=== PATIENT | female | born 1980 | race Caucasian/White ===

== ENCOUNTER → 2016-07-10 | Outpatient (REF) | payer OTHER, MEDICAID ==
[~2016-07-10] MED LIST: /MOM400 PO; ACET50TA PO; ANUS2.5C2 EXT; COLA50CA3 PO; IBUP-1114 PO; IBUP600T26 PO; PRENTAB66 PO
== END ==
LOC: M SFHCSACK 13:13
PROVIDERS: ATTEND Physician Assistant
DX: L65.9 Nonscarring hair loss, unspecified (principal)

== ENCOUNTER → 2017-01-08 | Outpatient (REF) | payer MEDICAID, OTHER ==
[2017-01-08 16:17] LABS: ADD MANUAL DIFFER YES; MEAN CORPUSCULAR HGB CONC 33.8 g/dl (32.0-36.5); MEAN CORPUSCULAR VOLUME 91.6 fl (80.0-96.0); PLATELET COUNT, AUTOMATED 259 k/mm3 (150-450); RED CELL DISTRIBUTION WIDTH 11.8 % (11.5-14.5); WHITE BLOOD COUNT 7.1 K/mm3 (4.0-10.0)
[2017-01-08 16:21] LABS: VITAMIN B12 LEVEL 729 PG/ML (247-911)
[2017-01-08 16:23] LABS: ALBUMIN 3.9 GM/DL (3.2-5.2); ALBUMIN/GLOBULIN RATIO 1.08 (1.00-1.93); ALKALINE PHOSPHATASE 98 U/L (45-117); ALT/SGPT 25 U/L (12-78); ANION GAP 8 MEQ/L (8-16); AST/SGOT 14 U/L (15-37); BILIRUBIN,TOTAL 0.5 MG/DL (0.2-1.0); BLOOD UREA NITROGEN 12 MG/DL (7-18); CALCIUM LEVEL 8.5 MG/DL (8.5-10.1); CARBON DIOXIDE LEVEL 24 MEQ/L (21-32); CHLORIDE LEVEL 108 MEQ/L (98-107); CHOLESTEROL LEVEL 219 MG/DL (<200); CREATININE FOR GFR 0.78 MG/DL (0.55-1.02); FREE T4 0.92 NG/DL (0.76-1.46); GLOMERULAR FILTRATION RATE > 60.0 (>60); GLUCOSE, FASTING 94 MG/DL (70-105); POTASSIUM SERUM 4.1 MEQ/L (3.5-5.1); SODIUM LEVEL 140 MEQ/L (136-145); TOTAL PROTEIN 7.5 GM/DL (6.4-8.2); TRIGLYCERIDES LEVEL 87 MG/DL (<150)
[2017-01-08 18:19] LABS: EOSINOPHILS 5 % (0-5)
[2017-01-08 18:20] LABS: TOXIC VACUOLATION 1+
== END ==
LOC: M SFHCSACK 09:14
PROVIDERS: ATTEND Physician Assistant
DX: F53 Mental and behavioral disorders associated with the puerperium, not elsewhere classified (principal); Z13.6 Encounter for screening for cardiovascular disorders; L65.9 Nonscarring hair loss, unspecified

== ENCOUNTER → 2017-02-26 | Outpatient (REF) | payer OTHER | LOC: M LAB REF 11:36 | PROVIDERS: ATTEND Obstetrics & Gynecology | DX: Z12.4 Encounter for screening for malignant neoplasm of cervix (principal) ==

== ENCOUNTER → 2018-01-09 | Outpatient (REF) | payer OTHER, MEDICAID | LOC: M SFHCADAM 18:21 | DX: K21.9 Gastro-esophageal reflux disease without esophagitis (principal); Z13.220 Encounter for screening for lipoid disorders; Z83.49 Family history of other endocrine, nutritional and metabolic diseases; E55.9 Vitamin D deficiency, unspecified ==

== ENCOUNTER → 2018-04-01 | Outpatient (REF) | payer OTHER, MEDICAID ==
[2018-04-01 12:51] LABS: BASO % 0.3 % (0.0-1.0); EOS # 0.2 10^3/uL (0.0-0.50); HEMATOCRIT 40.7 % (36.0-47.0); HEMOGLOBIN 13.5 g/dl (12.0-15.5); IMMATURE GRANULOCYTE % 0.4 % (0-3.0); LYMPH # 2.9 10^3/uL (1.5-4.5); LYMPH % 31.6 % (24.0-44.0); MEAN CORPUSCULAR HEMOGLOBIN 30.5 pg (27.0-33.0); MEAN CORPUSCULAR HGB CONC 33.2 g/dl (32.0-36.5); MEAN CORPUSCULAR VOLUME 92.1 fl (80.0-96.0); MONO # 0.6 10^3/uL (0.0-0.8); MONO % 6.2 % (0.0-5.0); NEUTROPHILS # 5.4 10^3/uL (1.8-7.7); NEUTROPHILS % 59.5 % (36.0-66.0); PLATELET COUNT, AUTOMATED 256 10^3/uL (150-450); RED BLOOD COUNT 4.42 10^6/uL (4.00-5.40); RED CELL DISTRIBUTION WIDTH 11.7 % (11.5-14.5)
[2018-04-01 13:27] LABS: ALBUMIN 4.1 GM/DL (3.2-5.2); ALBUMIN/GLOBULIN RATIO 1.11 (1.00-1.93); ALKALINE PHOSPHATASE 95 U/L (45-117); ALT/SGPT 44 U/L (12-78); ANION GAP 8 MEQ/L (8-16); AST/SGOT 21 U/L (7-37); BILIRUBIN,TOTAL 0.8 MG/DL (0.2-1.0); BLOOD UREA NITROGEN 21 MG/DL (7-18); CALCIUM LEVEL 9.1 MG/DL (8.5-10.1); CARBON DIOXIDE LEVEL 27 MEQ/L (21-32); CHLORIDE LEVEL 106 MEQ/L (98-107); CHOLESTEROL LEVEL 256 MG/DL (<200); CHOLESTEROL RISK RATIO 6.918 (<5); CREATININE FOR GFR 1.03 MG/DL (0.55-1.30); FREE T4 0.92 NG/DL (0.76-1.46); GLOMERULAR FILTRATION RATE > 60.0 (>60); GLUCOSE, FASTING 90 MG/DL (70-100); HDL CHOLESTEROL 37 MG/DL (>40); LDL CHOLESTEROL 187 MG/DL (<100); NON-HDL-C 219 MG/DL; POTASSIUM SERUM 4.7 MEQ/L (3.5-5.1); SODIUM LEVEL 141 MEQ/L (136-145); TOTAL PROTEIN 7.8 GM/DL (6.4-8.2); TRIGLYCERIDES LEVEL 161 MG/DL (<150)
[2018-04-01 13:30] LABS: TOTAL 25(OH) VITAMIN D 22.1 NG/ML (30.0-100.0)
== END ==
LOC: M LABDRWAD 12:32
DX: Z13.220 Encounter for screening for lipoid disorders (principal); E55.9 Vitamin D deficiency, unspecified; K21.9 Gastro-esophageal reflux disease without esophagitis

== ENCOUNTER → 2018-12-09 | Outpatient (CLI) | payer MEDICAID, OTHER ==
[~2018-12-09] MED LIST changes: -/MOM400 PO; -ACET50TA PO; +MAPA500T17 PO; +MAPA500T2 PO; +MILK10SU PO
--- NOTE | 2018-12-10 08:20 | REP ---
Pelvic sonography: History: Pelvic and perineal pain. Findings: Transabdominal and transvaginal scanning are performed. Visualized bladder duarte are smooth. Uterine dimensions are normal at 7.8 x 3.5 x 4.3 cm. Endometrial echo 0.2 cm thick and centrally placed. Myometrium is slightly heterogeneous. There is a 0.9 cm fibroid anteriorly and a posterior lower uterine segment area may be a second fibroid 2.1 cm in greatest diameter. No free fluid is seen. Normal ovaries are noted. Right ovarian dimensions are 2.5 x 1.8 x 2.2 cm. Its Doppler flow is normal with resistive index 0.58. Left ovary measures 2.9 x 2.1 x 2.5 cm. It contains a 1.7 cm follicle. Its Doppler flow is normal, resistive index is measured at 0.48. Impression: Small uterine fibroids. Otherwise normal pelvic sonography. Electronically Signed by Duc Najera MD 12/10/2018 09:44 A
== END ==
LOC: M RAD 17:28
PROVIDERS: ATTEND Advanced Practice Midwife
DX: R10.2 Pelvic and perineal pain (principal)

== ENCOUNTER → 2019-01-15 | Outpatient (REF) | payer OTHER, MEDICAID ==
[2019-01-15 15:07] LABS: BASO # 0.1 10^3/uL (0.0-0.2); BASO % 0.8 % (0.0-1.0); EOS # 0.3 10^3/uL (0.0-0.50); EOS % 4.2 % (0.0-3.0); HEMATOCRIT 36.9 % (36.0-47.0); HEMOGLOBIN 12.3 g/dl (12.0-15.5); LYMPH # 2.2 10^3/uL (1.5-4.5); LYMPH % 30.3 % (24.0-44.0); MEAN CORPUSCULAR HEMOGLOBIN 31.5 pg (27.0-33.0); MEAN CORPUSCULAR HGB CONC 33.3 g/dl (32.0-36.5); MEAN CORPUSCULAR VOLUME 94.4 fl (80.0-96.0); MONO # 0.5 10^3/uL (0.0-0.8); MONO % 7.3 % (0.0-5.0); NEUTROPHILS # 4.1 10^3/uL (1.8-7.7); PLATELET COUNT, AUTOMATED 243 10^3/uL (150-450); RED BLOOD COUNT 3.91 10^6/uL (4.00-5.40); WHITE BLOOD COUNT 7.2 10^3/uL (4.0-10.0)
[2019-01-15 15:25] LABS: ALBUMIN 3.6 GM/DL (3.2-5.2); ALT/SGPT 71 U/L (12-78); BILIRUBIN,TOTAL 0.3 MG/DL (0.2-1.0); BLOOD UREA NITROGEN 13 MG/DL (7-18); CALCIUM LEVEL 8.4 MG/DL (8.5-10.1); CARBON DIOXIDE LEVEL 27 MEQ/L (21-32); CHLORIDE LEVEL 108 MEQ/L (98-107); CHOLESTEROL LEVEL 182 MG/DL (<200); CHOLESTEROL RISK RATIO 5.352 (<5); CREATININE FOR GFR 0.74 MG/DL (0.55-1.30); GLOMERULAR FILTRATION RATE > 60.0 (>60); GLUCOSE, FASTING 107 MG/DL (70-100); HDL CHOLESTEROL 34 MG/DL (>40); LDL CHOLESTEROL 122 MG/DL (<100); NON-HDL-C 148 MG/DL; POTASSIUM SERUM 4.2 MEQ/L (3.5-5.1); SODIUM LEVEL 142 MEQ/L (136-145); TOTAL PROTEIN 6.9 GM/DL (6.4-8.2); TRIGLYCERIDES LEVEL 128 MG/DL (<150)
[2019-01-15 15:41] LABS: HEMOGLOBIN A1c 5.6 %
[2019-01-15 15:42] LABS: MALB URINE SIEMENS 55.7 MG/L; MAU/CREAT RATIO 30.6 MCG/MG (0.0-30.0)
== END ==
LOC: M SFHCSACK 08:23
PROVIDERS: ATTEND Physician Assistant
DX: K21.9 Gastro-esophageal reflux disease without esophagitis (principal); E78.2 Mixed hyperlipidemia; Z83.49 Family history of other endocrine, nutritional and metabolic diseases; R73.01 Impaired fasting glucose; E55.9 Vitamin D deficiency, unspecified

== ENCOUNTER → 2019-07-25 | Outpatient (REF) | payer OTHER, MEDICAID ==
[2019-07-25 14:53] LABS: BASO % 0.5 % (0.0-1.0); EOS # 0.2 10^3/uL (0.0-0.5); EOS % 2.3 % (0.0-3.0); HEMATOCRIT 37.4 % (36.0-47.0); HEMOGLOBIN 12.5 g/dl (12.0-15.5); LYMPH % 22.8 % (24.0-44.0); MEAN CORPUSCULAR HEMOGLOBIN 30.7 pg (27.0-33.0); MEAN CORPUSCULAR HGB CONC 33.4 g/dl (32.0-36.5); MEAN CORPUSCULAR VOLUME 91.9 fl (80.0-96.0); MONO # 0.6 10^3/uL (0.0-0.8); MONO % 7.1 % (0.0-5.0); NEUTROPHILS # 5.8 10^3/uL (1.5-8.5); NEUTROPHILS % 66.7 % (36.0-66.0); PLATELET COUNT, AUTOMATED 257 10^3/uL (150-450); RED BLOOD COUNT 4.07 10^6/uL (4.00-5.40); WHITE BLOOD COUNT 8.7 10^3/uL (4.0-10.0)
[2019-07-25 15:16] LABS: ALBUMIN 3.5 GM/DL (3.2-5.2); ALT/SGPT 55 U/L (12-78); BILIRUBIN,TOTAL 0.4 MG/DL (0.2-1.0); BLOOD UREA NITROGEN 12 MG/DL (7-18); CALCIUM LEVEL 8.5 MG/DL (8.5-10.1); CARBON DIOXIDE LEVEL 25 MEQ/L (21-32); CHLORIDE LEVEL 108 MEQ/L (98-107); CHOLESTEROL LEVEL 204 MG/DL (<200); CHOLESTEROL RISK RATIO 6.181 (<5); CREATININE FOR GFR 0.82 MG/DL (0.55-1.30); GLOMERULAR FILTRATION RATE > 60.0 (>60); GLUCOSE, FASTING 123 MG/DL (70-100); HDL CHOLESTEROL 33 MG/DL (>40); LDL CHOLESTEROL 142 MG/DL (<100); NON-HDL-C 171 MG/DL; POTASSIUM SERUM 4.2 MEQ/L (3.5-5.1); SODIUM LEVEL 139 MEQ/L (136-145); TOTAL PROTEIN 7.1 GM/DL (6.4-8.2); TRIGLYCERIDES LEVEL 146 MG/DL (<150)
[2019-07-25 15:23] LABS: HEMOGLOBIN A1c 5.9 %
[2019-07-25 15:24] LABS: TOTAL 25(OH) VITAMIN D 30.4 NG/ML (30.0-100.0)
== END ==
LOC: M SFHCSACK 08:26
PROVIDERS: ATTEND Physician Assistant
DX: J30.2 Other seasonal allergic rhinitis (principal); E78.2 Mixed hyperlipidemia; R73.01 Impaired fasting glucose; E55.9 Vitamin D deficiency, unspecified

== ENCOUNTER 2019-12-18 16:43 | Emergency (ER) | payer MEDICAID, OTHER ==
[~2019-12-18] VITALS: Ht 160 cm; Wt 104.2 kg
[2019-12-18] MEDS ORDERED: FLUO10TA2 (17:05)
[2019-12-18] MEDS ORDERED: SIMV20TA22 (17:05)
[2019-12-18] MEDS ORDERED: ALL10TAB29 (17:05)
[2019-12-18] MEDS ORDERED: OMEP-221 (17:05)
[2019-12-18 17:14] LABS: BASO # 0.1 10^3/uL (0.0-0.2); BASO % 0.6 % (0.0-1.0); EOS # 0.2 10^3/uL (0.0-0.5); EOS % 2.9 % (0.0-3.0); HEMATOCRIT 39.1 % (36.0-47.0); HEMOGLOBIN 13.2 g/dl (12.0-15.5); LYMPH # 2.6 10^3/uL (1.5-5.0); LYMPH % 30.8 % (24.0-44.0); MEAN CORPUSCULAR HEMOGLOBIN 30.8 pg (27.0-33.0); MEAN CORPUSCULAR HGB CONC 33.8 g/dl (32.0-36.5); MEAN CORPUSCULAR VOLUME 91.1 fl (80.0-96.0); MONO # 0.5 10^3/uL (0.0-0.8); MONO % 6.2 % (0.0-5.0); NEUTROPHILS # 4.9 10^3/uL (1.5-8.5); PLATELET COUNT, AUTOMATED 249 10^3/uL (150-450); RED BLOOD COUNT 4.29 10^6/uL (4.00-5.40); WHITE BLOOD COUNT 8.3 10^3/uL (4.0-10.0)
[2019-12-18 17:42] LABS: ALBUMIN 3.7 GM/DL (3.2-5.2); ALT/SGPT 47 U/L (12-78); BILIRUBIN,DIRECT 0.2 MG/DL (0.0-0.2); BILIRUBIN,TOTAL 0.6 MG/DL (0.2-1.0); BLOOD UREA NITROGEN 13 MG/DL (7-18); CALCIUM LEVEL 8.9 MG/DL (8.5-10.1); CARBON DIOXIDE LEVEL 24 MEQ/L (21-32); CHLORIDE LEVEL 109 MEQ/L (98-107); CREATININE FOR GFR 0.86 MG/DL (0.55-1.30); GLOMERULAR FILTRATION RATE > 60.0 (>60); GLUCOSE, FASTING 123 MG/DL (70-100); LIPASE 165 U/L (73-393); POTASSIUM SERUM 3.9 MEQ/L (3.5-5.1); SODIUM LEVEL 139 MEQ/L (136-145); TOTAL PROTEIN 7.2 GM/DL (6.4-8.2)
--- NOTE | 2019-12-18 18:37 | ECGEPIP ---
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
--- NOTE | 2019-12-18 19:09 | REPVR ---
PROCEDURE INFORMATION: Exam: US Abdomen Limited, Right Upper Quadrant Exam date and time: 12/18/2019 6:43 PM Age: 39 years old Clinical indication: Abdominal pain; Epigastric; Additional info: Epigastric pain TECHNIQUE: Imaging protocol: Real-time ultrasound of the abdomen with image documentation. Examination was focused on the right upper quadrant. COMPARISON: No relevant prior studies available. FINDINGS: Liver: Increased echogenicity of the liver. Gallbladder: Gallbladder calculi. The gallbladder wall thickness measures 2 mm. Common bile duct: Common bile duct measures 5 mm. Pancreas: Pancreatic tail is obscured by overlying bowel gas. Right kidney: Right kidney measures 11.2 x 4.6 by 5.9 cm. Normal echogenicity of the kidney. IMPRESSION: Hepatic steatosis. Cholelithiasis. Electronically signed by: Al Fuller On 12/18/2019 19:09:11 PM
[2019-12-18] MEDS ORDERED: GI COCKTAIL 50ML BTL(HYOSCYAMINE/MAALOX/LIDOCAINE VISCOUS)(1:3:1) PO ONE (19:45)
[2019-12-18] MEDS ORDERED: CARA1TAB6 PO (20:55)
[2019-12-18 21:00] VITALS: BP 154/80
== END 2019-12-18 21:03 | disposition home or self-care (01) ==
LOC: M ED 16:43
DX: K80.70 Calculus of gallbladder and bile duct without cholecystitis without obstruction (principal); R10.13 Epigastric pain; E78.5 Hyperlipidemia, unspecified; K21.9 Gastro-esophageal reflux disease without esophagitis; Z88.0 Allergy status to penicillin; Z79.899 Other long term (current) drug therapy

== ENCOUNTER → 2019-12-24 | Outpatient (CLI) | payer OTHER ==
[~2019-12-24] MED LIST changes: +ALL10TAB29; +CARA1TAB6 PO; +FLUO10TA2; +OMEP-221; +SIMV20TA22
--- NOTE | 2019-12-31 11:03 | SLEEPHOME ---
DATE OF PROCEDURE: 12/24/2019 ORDERED BY: RAJESH Iqbal Diagnostic home sleep testing was performed due to concern for the obstructive sleep apnea syndrome in this patient with a history of snoring. For testing a nocturnal T3 respiratory monitoring device was used. Continuous record was made of pulse, oxygen saturation, airflow, chest AND abdominal strain, and body position. 9 hours and 59 minutes of data were reviewed. There were 7 hours and 10 minutes marked as time in bed. During the interval marked time in bed, there were 60 respiratory events identified of 10 seconds in duration or greater for a respiratory event index of 8.4. The events were primarily obstructive not exclusive to body posture. Baseline pulse rate 74 beats per minute, pulse rate ranged 56-114. Baseline saturation 93%, saturations fell to 87%. Testing was performed in both the supine and nonsupine positions. IMPRESSION: Abnormal home sleep testing with repetitive respiratory events and oxygen desaturations to 87% with a respiratory event index of 8.4 is consistent with the obstructive sleep apnea. RECOMMENDATIONS: The patient should be encouraged to undergo a formal sleep evaluation.
== END ==
LOC: M SLEEP HO 09:46
PROVIDERS: ATTEND Nurse Practitioner Family
DX: R06.83 Snoring (principal)

== ENCOUNTER 2020-02-10 10:55 | Day surgery (SDC) | payer OTHER ==
[~2020-02-10 10:55] MED LIST changes: -ALL10TAB29; +CETI-24; +LevoFLOXacin 500MG/100ML IV BAG (J1956 PER 250MG) As Ordered ONE; +ROCURONIUM BROMIDE 50 MG/5 ML VIAL As Ordered ONE; +dexameTHASONE 4 MG/ML 1ML VIAL (J1100 PER 1MG) As Ordered ONE; +fentaNYL 250 MCG/5 ML INJECTION (J3010) As Ordered ONE; +propofoL 200 MG/20 ML VIAL As Ordered ONE
[2020-02-10] MEDS ORDERED: BUPIVACAINE LIPOSOME/PF 1.3% 20ML VIAL (13.3MG/ML)(EXPAREL)(C9290 PER1MG) As Ordered ONE (12:21)
[2020-02-10] MEDS ORDERED: BUPIVACAINE HCL 0.25% 30ML VIAL As Ordered ONE (12:21)
[2020-02-10] MEDS ORDERED: LIDOCAINE 1% SDV 30ML VIAL As Ordered ONE (12:21)
[2020-02-10] MEDS ORDERED: BUPIVACAINE/EPIN 0.25% 30 ML VIAL As Ordered ONE (12:21)
[2020-02-10] MEDS ORDERED: propofoL 200 MG/20 ML VIAL As Ordered ONE ×2 (13:09→13:38)
[2020-02-10] MEDS ORDERED: dexameTHASONE 4 MG/ML 1ML VIAL (J1100 PER 1MG) As Ordered ONE (13:10)
[2020-02-10] MEDS ORDERED: SUGAMMADEX SODIUM 500 MG/5 ML VIAL (BRIDION) As Ordered ONE (13:10)
[2020-02-10] MEDS ORDERED: KETOROLAC 60MG 2ML VIAL As Ordered ONE (13:10)
[2020-02-10] MEDS ORDERED: ONDANSETRON 4MG/2ML VIAL As Ordered ONE (13:10)
[2020-02-10] MEDS ORDERED: LABETALOL 100MG/20ML VIAL As Ordered ONE (13:14)
[2020-02-10] MEDS ORDERED: SEVOFLURANE INHAL SOLN 250 ML BTL As Ordered ONE (13:15)
[2020-02-10] MEDS ORDERED: MIDAZOLAM INJ 2MG/2ML VIAL (J2250 PER 1MG) As Ordered ONE (13:25)
[2020-02-10] MEDS ORDERED: ROCURONIUM BROMIDE 50 MG/5 ML VIAL As Ordered ONE (13:27)
[2020-02-10] MEDS ORDERED: HYDROmorphone HCL 2 MG/ML 1ML VIAL (J1170) As Ordered ONE (13:28)
[2020-02-10] MEDS ORDERED: LIDOCAINE 2% 100MG/5ML SDV (FOR ANES.) As Ordered ONE (13:32)
--- NOTE | 2020-05-04 09:50 | RO ---
DATE OF OPERATION: 02/10/2020 PREOPERATIVE DIAGNOSIS: Symptomatic gallstones. POSTOPERATIVE DIAGNOSIS: Symptomatic gallstones. PROCEDURE: Laparoscopic cholecystectomy. SURGEON: Hilario Brizuela M.D. ANESTHESIA: General endotracheal anesthesia. ESTIMATED BLOOD LOSS: Minimal. FLUIDS: Crystalloid. BRIEF PROCEDURE SUMMARY: The patient was brought to the operating room and was given general anesthesia. After adequate anesthesia and preoperative antibiotics were given, the patient was prepped and draped in the usual sterile fashion. Next, a supraumbilical incision was made with the skin knife. Blunt dissection was carried down to the fascia. Veress needle was placed into the abdominal cavity and insufflated to 15 mmHg. Dilating 10 mm trocar was placed at this time and under direct visualization, epigastric and two lateral trocars were placed. Next, the patient was placed in a reverse Trendelenburg position, left side down, and the gallbladder was grasped, retracted superiorly and the peritoneum was cleared of the lateral aspect of the gallbladder across the anterior surface and medially towards the cystic artery and cystic duct node. Once this was created, the window behind the neck of the gallbladder was created using some blunt dissection as well as the hook cautery and eventually this was nicely made, specifically working more on the lateral side and then eventually on the medial side. A good critical view of safety was obtained and the cystic artery was clipped proximally and distally and then transected. The gallbladder then was further mobilized and the cystic duct was even better visualized at this time, and clipped proximally and distally, and transected. The gallbladder was removed from the gallbladder bed using electrocautery. There was some oozing along the liver bed, which was controlled with electrocautery; however, otherwise the gallbladder was removed, placed in an Endo Catch bag, and brought out through the umbilicus. The right upper quadrant was copiously irrigated until clear. Operative field was clean and dry, and all trocars were removed under direct visualization. 0-Vicryl was used to close the fascia at the umbilicus and all incisions closed with 4-0 Vicryl. Steri-Strips and a dry sterile dressing were applied. The patient was awakened, extubated, and brought to the recovery room awake, alert, and hemodynamically stable. Sponge and needle counts were correct x2. MTDD
== END 2020-02-10 17:10 | disposition home or self-care (01) ==
LOC: M SDC 10:55
PROVIDERS: ATTEND Surgery
DX: K80.10 Calculus of gallbladder with chronic cholecystitis without obstruction (principal); E78.5 Hyperlipidemia, unspecified; G47.30 Sleep apnea, unspecified; K21.9 Gastro-esophageal reflux disease without esophagitis; E66.01 Morbid (severe) obesity due to excess calories; F41.9 Anxiety disorder, unspecified; Z88.0 Allergy status to penicillin; Z79.899 Other long term (current) drug therapy
CPT/HCPCS: 47562; 88304; C9290; J1100; J1170; J1885; J1956; J2250; J2405; J3010

== ENCOUNTER → 2020-03-22 | Outpatient (REF) | payer OTHER ==
[~2020-03-22] MED LIST changes: -LevoFLOXacin 500MG/100ML IV BAG (J1956 PER 250MG) As Ordered ONE; -ROCURONIUM BROMIDE 50 MG/5 ML VIAL As Ordered ONE; -dexameTHASONE 4 MG/ML 1ML VIAL (J1100 PER 1MG) As Ordered ONE; -fentaNYL 250 MCG/5 ML INJECTION (J3010) As Ordered ONE; -propofoL 200 MG/20 ML VIAL As Ordered ONE
== END ==
LOC: M SFHCWAGY 17:15
PROVIDERS: ATTEND Obstetrics & Gynecology
DX: Z12.4 Encounter for screening for malignant neoplasm of cervix (principal)

== ENCOUNTER → 2020-05-17 | Outpatient (CLI) | payer OTHER ==
[2020-05-17 16:09] LABS: BASO # 0.1 10^3/uL (0.0-0.2); BASO % 0.6 % (0.0-1.0); EOS # 0.3 10^3/uL (0.0-0.5); EOS % 3.2 % (0.0-3.0); HEMATOCRIT 41.3 % (36.0-47.0); LYMPH # 2.5 10^3/uL (1.5-5.0); LYMPH % 31.5 % (24.0-44.0); MEAN CORPUSCULAR HEMOGLOBIN 29.4 pg (27.0-33.0); MEAN CORPUSCULAR HGB CONC 31.5 g/dl (32.0-36.5); MEAN CORPUSCULAR VOLUME 93.4 fl (80.0-96.0); MONO # 0.5 10^3/uL (0.0-0.8); MONO % 6.9 % (0.0-5.0); NEUTROPHILS # 4.5 10^3/uL (1.5-8.5); NEUTROPHILS % 57.3 % (36.0-66.0); PLATELET COUNT, AUTOMATED 303 10^3/uL (150-450); RED BLOOD COUNT 4.42 10^6/uL (4.00-5.40); WHITE BLOOD COUNT 7.9 10^3/uL (4.0-10.0)
[2020-05-17 16:45] LABS: ALBUMIN 3.8 GM/DL (3.2-5.2); ALT/SGPT 51 U/L (12-78); BILIRUBIN,TOTAL 0.5 MG/DL (0.2-1.0); BLOOD UREA NITROGEN 11 MG/DL (7-18); CALCIUM LEVEL 9.3 MG/DL (8.5-10.1); CARBON DIOXIDE LEVEL 27 MEQ/L (21-32); CHLORIDE LEVEL 107 MEQ/L (98-107); CHOLESTEROL LEVEL 261 MG/DL (<200); CREATININE FOR GFR 0.94 MG/DL (0.55-1.30); FREE T4 1.06 NG/DL (0.76-1.46); GLOMERULAR FILTRATION RATE > 60.0 (>60); GLUCOSE, FASTING 80 MG/DL (70-100); HDL CHOLESTEROL 36 MG/DL (>40); LDL CHOLESTEROL 185 MG/DL (<100); NON-HDL-C 225 MG/DL; POTASSIUM SERUM 4.2 MEQ/L (3.5-5.1); SODIUM LEVEL 138 MEQ/L (136-145); TOTAL 25(OH) VITAMIN D 30.6 NG/ML (30.0-100.0); TOTAL PROTEIN 7.6 GM/DL (6.4-8.2); TRIGLYCERIDES LEVEL 202 MG/DL (<150); VITAMIN B12 LEVEL 418 PG/ML
== END ==
LOC: M WUC 12:28
PROVIDERS: ATTEND Nurse Practitioner Family
DX: Z00.00 Encounter for general adult medical examination without abnormal findings (principal)

== ENCOUNTER → 2020-06-22 | Outpatient (CLI) | payer OTHER ==
[2020-06-24 20:07] LABS: TESTOSTERONE FREE (DIRECT) 0.6 pg/mL (0.0-4.2)
== END ==
LOC: M WUC 13:46
PROVIDERS: ATTEND Internal Medicine Endocrinology, Diabetes & Metabolism
DX: L65.9 Nonscarring hair loss, unspecified (principal)

== ENCOUNTER → 2021-01-25 | Outpatient (CLI) | payer OTHER, MEDICAID ==
[2021-01-25 18:16] LABS: BASO % 0.3 % (0.0-1.0); EOS # 0.1 10^3/uL (0.0-0.5); EOS % 0.9 % (0.0-3.0); HEMATOCRIT 41.6 % (36.0-47.0); HEMOGLOBIN 13.3 g/dl (12.0-15.5); LYMPH # 1.9 10^3/uL (1.5-5.0); LYMPH % 13.5 % (24.0-44.0); MEAN CORPUSCULAR VOLUME 93.9 fl (80.0-96.0); MONO # 0.5 10^3/uL (0.0-0.8); MONO % 3.3 % (2.0-8.0); NEUTROPHILS % 80.2 % (36.0-66.0); PLATELET COUNT, AUTOMATED 268 10^3/uL (150-450); RED BLOOD COUNT 4.43 10^6/uL (4.00-5.40); WHITE BLOOD COUNT 13.7 10^3/uL (4.0-10.0)
[2021-01-25 19:01] LABS: ERYTHROCYTE SEDIMENTATION RATE 55 mm/hr (0-20)
[2021-01-25 19:07] LABS: ALBUMIN 3.1 GM/DL (3.2-5.2); ALT/SGPT 75 U/L (12-78); BILIRUBIN,TOTAL 0.5 MG/DL (0.2-1.0); BLOOD UREA NITROGEN 12 MG/DL (7-18); C REACTIVE PROTEIN QUANTITATIV 1.27 MG/DL (0.00-0.30); CALCIUM LEVEL 8.7 MG/DL (8.5-10.1); CARBON DIOXIDE LEVEL 30 MEQ/L (21-32); CHLORIDE LEVEL 104 MEQ/L (98-107); CREATININE FOR GFR 0.71 MG/DL (0.55-1.30); FREE T4 0.97 NG/DL (0.76-1.46); GLOMERULAR FILTRATION RATE > 60.0 (>60); GLUCOSE, FASTING 74 MG/DL (70-100); POTASSIUM SERUM 3.9 MEQ/L (3.5-5.1); RHEUMATOID FACTOR QUANT < 10.0 IU/ML (<15.0); SODIUM LEVEL 139 MEQ/L (136-145); TOTAL PROTEIN 7.3 GM/DL (6.4-8.2)
== END ==
LOC: M LABDRWAD 15:28
PROVIDERS: ATTEND Nurse Practitioner Family
DX: R21 Rash and other nonspecific skin eruption (principal); R50.9 Fever, unspecified

== ENCOUNTER → 2021-01-26 | Outpatient (REF) | payer OTHER, MEDICAID | LOC: M LABDRWAD 16:39 | PROVIDERS: ATTEND Nurse Practitioner Family | DX: R50.9 Fever, unspecified (principal) ==

== ENCOUNTER → 2021-02-14 | Outpatient (CLI) | payer OTHER, MEDICAID ==
[~2021-02-14] MED LIST changes: +CELE10TA PO; +CETI-24 PO; +DOXY-350 PO; +ERGO500029 PO; +FLUTISP NARES; +MELO7.5T35 PO; -OMEP-221; +OMEP-221 PO; -SIMV20TA22; +SIMV20TA22 PO; +TIZA4CAP6 PO
== END ==
LOC: M LABSMTC 09:45
PROVIDERS: ATTEND Anesthesiology
DX: Z01.818 Encounter for other preprocedural examination (principal)

== ENCOUNTER 2021-02-18 06:06 | Day surgery (SDC) | payer OTHER ==
[~2021-02-18] VITALS: Ht 160 cm; Wt 97.9 kg
[~2021-02-18 06:06] MED LIST changes: +LR 1,000 ML IV ONE
[2021-02-18 06:46] LABS: HEMATOCRIT 36.4 % (36.0-47.0); MEAN CORPUSCULAR HEMOGLOBIN 30.4 pg (27.0-33.0); MEAN CORPUSCULAR VOLUME 92.2 fl (80.0-96.0); PLATELET COUNT, AUTOMATED 290 10^3/uL (150-450); RED BLOOD COUNT 3.95 10^6/uL (4.00-5.40)
[2021-02-18] MEDS ORDERED: SILVER NITRATE APPLICATOR As Ordered ONE (07:05)
[2021-02-18] MEDS ORDERED: BUPIVACAINE HCL 0.25% 10ML VIAL As Ordered ONE (07:05)
[2021-02-18] MEDS ORDERED: HYDROmorphone HCL 2 MG/ML 1ML VIAL (J1170) As Ordered ONE (07:07)
[2021-02-18] MEDS ORDERED: MIDAZOLAM INJ 2MG/2ML VIAL (J2250 PER 1MG) As Ordered ONE (07:07)
[2021-02-18] MEDS ORDERED: dexameTHASONE 4 MG/ML 1ML VIAL (J1100 PER 1MG) As Ordered ONE (07:08)
[2021-02-18] MEDS ORDERED: ONDANSETRON 4MG/2ML VIAL As Ordered ONE (07:08)
[2021-02-18] MEDS ORDERED: ROCURONIUM BROMIDE 50 MG/5 ML VIAL As Ordered ONE ×2 (07:08→08:32)
[2021-02-18] MEDS ORDERED: LIDOCAINE 2% 100MG/5ML SDV (FOR ANES.) As Ordered ONE (07:08)
[2021-02-18] MEDS ORDERED: propofoL 200 MG/20 ML VIAL As Ordered ONE (07:08)
[2021-02-18] MEDS ORDERED: fentaNYL 100 MCG/2 ML INJECTION (J3010) As Ordered ONE (07:08)
[2021-02-18] MEDS ORDERED: KETOROLAC 60MG 2ML VIAL As Ordered ONE (07:08)
[2021-02-18 07:31] LABS: HCG, SERUM QUALITATIVE NEGATIVE (NEGATIVE)
[2021-02-18] MEDS ORDERED: ACETAMINOPHEN 1000MG 100ML IV BTL (OFIRMEV) (J0131 PER 10MG) As Ordered ONE (07:50)
[2021-02-18] MEDS ORDERED: SUGAMMADEX SODIUM 500 MG/5 ML VIAL (BRIDION) As Ordered ONE (07:57)
[2021-02-18] MEDS ORDERED: PHENYLephrine 500MCG 5ML (100MCG/ML) SYRINGE As Ordered ONE (08:10)
[2021-02-18] MEDS ORDERED: LR 1,000 ML IV SCH ×2 (09:20→09:25)
[2021-02-18] MEDS ORDERED: ONDANSETRON 4MG/2ML VIAL IV PRN (09:20)
[2021-02-18] MEDS ORDERED: METOCLOPRAMIDE INJ 10MG/2ML VIAL (J2765 PER 1) IV PRN (09:20)
[2021-02-18] MEDS ORDERED: PERCOCET 5MG/325MG TAB PO PRN (09:20)
[2021-02-18] MEDS ORDERED: fentaNYL 100 MCG/2 ML INJECTION (J3010) IV PRN (09:20)
[2021-02-18 10:49] VITALS: BP 142/69
[2021-02-18] MEDS ORDERED: OXYC1TAB23 PO (11:39)
[2021-02-18] MEDS ORDERED: COLA100C5 PO (11:41)
[2021-02-18] MEDS ORDERED: IBUP80TA PO (11:41)
--- NOTE | 2021-02-18 11:52 | ROOPDOC ---
[facility] Report Of Operation Report of Operation Date of procedure: 02/18/2021 Preoperative diagnosis: Satisfied parity. Postoperative diagnosis: Same Procedure: Laparoscopic bilateral salpingectomy and removal of Nexplanon from left upper inner arm Anesthesia: Gen. endotracheal Estimated blood loss 20 mL IV fluids replaced 1100 mL lactated Ringer's Drains: In and out catheter 200 mL of urine Complications: None Preoperative antibiotics: None indicated Specimens: Bilateral fallopian tubes Intraoperative findings: Normal size, shape, contour of the uterus. Normal adnexa/ovaries bilaterally. Possible pelvic congestion syndrome; large dilated vessels around left adnexa. Procedure: The patient was counseled and consented on the risks, benefits, indications, and alternatives of the procedure. Informed consent was obtained. She was taken to the operating room with an IV running. She was placed on the operating table in the dorsal supine position. Gen. anesthesia was administered and the airway was secured without any difficulty. A timeout was performed per protocol. She was prepared and draped in the normal sterile fashion. Attention was turned to the pelvis. The bladder was drained with in and out sterile catheter. A speculum was placed into the vagina with good visualization of the cervix. A single- tooth tenaculum was placed on the anterior lip of the cervix and downward traction was applied. The cervix was sequentially dilated with Rambo dilators up to a #16. A ZUMI uterine manipulator was placed without any difficulty. The single-tooth tenaculum was removed. The tenaculum sites were noted to be hemostatic. A sterile glove switch was performed. Attention was turned to the abdomen. A 5mm umbilical incision was made with the 11 blade. Through this incision, a Veress needle was placed into the intraperitoneal cavity. Intraperitoneal placement was confirmed with ease of flow of normal saline, a positive drop test and no return on aspiration. The opening pressure was 2 mmHg. The abdomen was insufflated with 2 L of CO2. The Veress needle was removed. A 5 mm laparoscopic trocar was placed under direct visualization without any difficulty, and intraperitoneal placement was confirmed. No incidental bleeding or injury was evident. The patient was placed in steep Trendelenburg. 2 additional laparoscopic port sites were placed through 5 mm in cisions in the lower left quadrant. Each trocar/cannula was placed under direct visualization without any difficulty, incidental bleeding or injury. Attention was turned to the right fallopian tube. The right fallopian tube was followed out to the fimbriated end, grasped and elevated. The underlying mesosalpinx was sequentially clamped, coagulated and transected, until the level of the cornu was reached. At this level, the fallopian tube was clamped, coagulated and transected, thus amputating the fallopian tube. The fallopian tube was brought through the cannula without any difficulty and sent to pathology for permanent section. Attention was turned to the left fallopian tube. The left fallopian tube was followed out to the fimbriated end, grasped and elevated. The underlying mesosalpinx was sequentially clamped, coagulated and transected, until the level of the cornu was reached. At this level the fallopian tube was clamped, coagulated and transected, thus amputating the fallopian tube. The fallopian tube was brought to the cannula without any difficulty and sent to pathology for permanent section. A small area of bleeding was noted along the left mesosalpinx near the left IP ligament. The LigaSure and monopolar berlin were used to coagulate this area and excellent hemostasis was achieved. Rissa was placed over this area to ensure hemostasis. This area was observed off of any tension and excellent hemostasis was present, no bleeding was noted. Both right and left surgical sites were noted to be completely hemostatic. The gas was released from the abdomen. The patient was taken out of Trendelenburg position. The cannulas were removed. The skin incisions were closed with 4-0 Monocryl in subcuticular fashion and reinforced with Dermabond. The uterine manipulator was removed, the vagina was noted to be clear of any sponge or instrument. Sponge, needle and instrument counts were correct per protocol. Attention was turned to the left upper inner arm where the Nexplanon implant was placed. While the patient was still under general anesthesia, a toan was placed on the skin with an 11 blade over the distal tip and the Nexplanon implant was easily pushed out and removed in its entirety. Local anesthesia was injected into this area, approximately 3 mL of quarter percent Marcaine. A Steri-Strip was placed over the skin incision and a bandage was applied. The patient tolerated the entire procedure very well. She was transferred to the PACU in good and stable condition. DO DILLON Portillo JONATHAN R. DO Feb 18, 2021 11:52
== END 2021-02-18 10:51 | disposition home or self-care (01) ==
LOC: M SDC 06:06
PROVIDERS: ATTEND Obstetrics & Gynecology
DX: Z30.2 Encounter for sterilization (principal); Z30.46 Encounter for surveillance of implantable subdermal contraceptive; E78.5 Hyperlipidemia, unspecified; A69.20 Lyme disease, unspecified; R06.83 Snoring; E66.9 Obesity, unspecified; Z68.38 Body mass index [BMI] 38.0-38.9, adult; I51.9 Heart disease, unspecified; M54.30 Sciatica, unspecified side; F41.9 Anxiety disorder, unspecified; F32.9 Major depressive disorder, single episode, unspecified; Z79.899 Other long term (current) drug therapy; Z79.2 Long term (current) use of antibiotics; Z87.891 Personal history of nicotine dependence; Z88.0 Allergy status to penicillin
CPT/HCPCS: 11982; 36415; 58661; 84703; 85027; 86850; 86900; 86901; 88302; J0131; J1100; J1170; J1885; J2250; J2370; J2405; J3010

== ENCOUNTER → 2021-06-13 | Outpatient (REF) | payer BC, OTHER ==
[~2021-06-13] MED LIST changes: +COLA100C5 PO; +IBUP80TA PO; -LR 1,000 ML IV ONE; -OMEP-221 PO; +OMEP40CA5 PO; +OXYC1TAB23 PO
== END ==
LOC: M SFHCWAGY 17:21
PROVIDERS: ATTEND Obstetrics & Gynecology
DX: Z12.4 Encounter for screening for malignant neoplasm of cervix (principal)
CPT/HCPCS: 87624; G0123

== ENCOUNTER → 2021-06-23 | Outpatient (CLI) | payer BC, OTHER ==
[~2021-06-23] MED LIST changes: +OMEP-221 PO; -OMEP40CA5 PO
--- NOTE | 2021-06-23 13:13 | REP ---
INDICATION: POSTCOITAL BLEEDING. COMPARISON: 12/09/2018. TECHNIQUE: Transabdominal and transvaginal scanning performed. FINDINGS: Uterine dimensions are 7.7 x 4.0 x 5.3 cm. Endometrial echo is 10 mm in AP dimension and centrally placed. Myometrial echotexture is diffusely heterogeneous. There is a left uterine fibroid which measures 2.3 x 2.3 x 2.0 cm. The bladder measures 10.8 x 5.5 x 7.5cm. The right ovary has dimensions of 2.4 x 2.1 x 3.1 cm. It's Doppler flow is normal with a resistive index of 0.49. The left ovary dimensions are 1.6 x 2.0 x 1.6 cm. It's Doppler flow was normal with resistive index of 0.50. A complex dominant follicle of the right ovary measures 1.6 cm in diameter. No other adnexal mass is seen. No free fluid is seen in the cul-de-sac. IMPRESSION: Left uterine fibroid with maximum diameter 2.3 cm. Complex dominant follicle right ovary 1.6 cm. Endometrial thickness 10 mm. <Electronically signed by Ifeanyi Saucedo > 06/23/21 [id number]
== END ==
LOC: M WHC 12:35
PROVIDERS: ATTEND Obstetrics & Gynecology
DX: N93.0 Postcoital and contact bleeding (principal); D25.9 Leiomyoma of uterus, unspecified

== ENCOUNTER → 2022-10-27 | Outpatient (CLI) | payer BC, MEDICAID ==
[~2022-10-27] MED LIST changes: -DOXY-350 PO; +DOXY-444 PO; -FLUO10TA2; +FLUO1TAB; +FLUT50SP17 NARES; -FLUTISP NARES; -OMEP-221 PO; +OMEP40CA5 PO
[2022-10-27 17:27] LABS: TOTAL 25(OH) VITAMIN D 27.6 NG/ML (20.0-100.0)
[2022-10-27 17:30] LABS: ALBUMIN 3.8 G/DL (3.2-5.2); ALKALINE PHOSPHATASE 84 U/L (46-116); ALT/SGPT 31 U/L (7.0-40); AST/SGOT 23 U/L (<34); BILIRUBIN,TOTAL 0.7 MG/DL (0.3-1.2); BLOOD UREA NITROGEN 15 MG/DL (9-23); CALCIUM LEVEL 8.9 MG/DL (8.5-10.1); CARBON DIOXIDE LEVEL 26 MMOL/L (20-31); CHLORIDE LEVEL 105 MMOL/L (98-107); CHOLESTEROL LEVEL 240 MG/DL (<200); CHOLESTEROL RISK RATIO 5.18 (<5); GLOMERULAR FILTRATION RATE > 60.0 (>58); GLUCOSE, FASTING 83 MG/DL (60-100); HDL CHOLESTEROL 46.3 MG/DL (>40); LDL CHOLESTEROL 136.7 MG/DL (<100); NON-HDL-C 193.7 MG/DL; POTASSIUM SERUM 4.2 MMOL/L (3.5-5.1); SODIUM LEVEL 138 MMOL/L (136-145); TOTAL PROTEIN 7.1 G/DL (5.7-8.2); TRIGLYCERIDES LEVEL 285 MG/DL (<150)
== END ==
LOC: M WUC 13:53
PROVIDERS: ATTEND Nurse Practitioner Family
DX: E78.2 Mixed hyperlipidemia (principal); E55.9 Vitamin D deficiency, unspecified

== ENCOUNTER → 2023-01-11 | Outpatient (CLI) | payer OTHER | LOC: M WHC 12:00 | PROVIDERS: ATTEND Nurse Practitioner Family | DX: Z12.31 Encounter for screening mammogram for malignant neoplasm of breast (principal) ==

== ENCOUNTER → 2023-01-24 | Outpatient (CLI) | payer BC, OTHER | LOC: M WHC 10:23 | PROVIDERS: ATTEND Nurse Practitioner Family | DX: N63.14 Unspecified lump in the right breast, lower inner quadrant (principal); R92.8 Other abnormal and inconclusive findings on diagnostic imaging of breast ==

== ENCOUNTER → 2023-04-19 | Outpatient (REF) | payer OTHER | LOC: M SFHCWAGY 10:59 | PROVIDERS: ATTEND Obstetrics & Gynecology | DX: Z12.4 Encounter for screening for malignant neoplasm of cervix (principal) ==

== ENCOUNTER → 2023-05-04 | Outpatient (CLI) | payer OTHER ==
[2023-05-04 14:15] LABS: ALKALINE PHOSPHATASE 82 U/L (46-116); ALT/SGPT 40 U/L (7.0-40); AST/SGOT 17 U/L (<34); BILIRUBIN,TOTAL 0.9 MG/DL (0.3-1.2); BLOOD UREA NITROGEN 12 MG/DL (9-23); CARBON DIOXIDE LEVEL 28 MMOL/L (20-31); CHLORIDE LEVEL 105 MMOL/L (98-107); CHOLESTEROL LEVEL 236 MG/DL (<200); CHOLESTEROL RISK RATIO 5.22 (<5); CREATININE FOR GFR 0.82 MG/DL (0.55-1.30); GLOMERULAR FILTRATION RATE > 60.0 (>58); GLUCOSE, FASTING 84 MG/DL (60-100); HDL CHOLESTEROL 45.2 MG/DL (>40); LDL CHOLESTEROL 163.4 MG/DL (<100); NON-HDL-C 190.8 MG/DL; POTASSIUM SERUM 4.3 MMOL/L (3.5-5.1); SODIUM LEVEL 140 MMOL/L (136-145); TOTAL PROTEIN 7.2 G/DL (5.7-8.2); TRIGLYCERIDES LEVEL 137 MG/DL (<150)
== END ==
LOC: M PLALAB 10:47
PROVIDERS: ATTEND Nurse Practitioner Family
DX: E78.2 Mixed hyperlipidemia (principal)

== ENCOUNTER → 2023-05-04 | Outpatient (CLI) | payer OTHER | LOC: M WHC 09:22 | PROVIDERS: ATTEND Obstetrics & Gynecology | DX: N93.9 Abnormal uterine and vaginal bleeding, unspecified (principal); D25.2 Subserosal leiomyoma of uterus ==

== ENCOUNTER → 2023-05-04 | Outpatient (CLI) | payer OTHER ==
[2023-05-04 13:38] LABS: HEMATOCRIT 38.7 % (36.0-47.0); HEMOGLOBIN 12.8 g/dl (12.0-15.5); MEAN CORPUSCULAR HEMOGLOBIN 30.8 pg (27.0-33.0); MEAN CORPUSCULAR HGB CONC 33.1 g/dl (32.0-36.5); MEAN CORPUSCULAR VOLUME 93.3 fl (80.0-96.0); PLATELET COUNT, AUTOMATED 280 10^3/uL (150-450); RED BLOOD COUNT 4.15 10^6/uL (4.00-5.40); WHITE BLOOD COUNT 6.5 10^3/uL (4.0-10.0)
== END ==
LOC: M PLALAB 10:44
PROVIDERS: ATTEND Obstetrics & Gynecology
DX: N93.9 Abnormal uterine and vaginal bleeding, unspecified (principal)

== ENCOUNTER → 2023-08-06 | Outpatient (CLI) | payer OTHER ==
[~2023-08-06] MED LIST changes: -FLUT50SP17 NARES; +FLUTISP NARES
== END ==
LOC: M WHC 13:09
PROVIDERS: ATTEND Nurse Practitioner
DX: R91.8 Other nonspecific abnormal finding of lung field (principal); Z53.9 Procedure and treatment not carried out, unspecified reason

== ENCOUNTER → 2023-11-07 | Outpatient (REF) | payer OTHER ==
[~2023-11-07] MED LIST changes: +DOXY-440 PO; -DOXY-444 PO; +TIZA4CAP3 PO; -TIZA4CAP6 PO
== END ==
LOC: M SFHCWAGY 10:44
PROVIDERS: ATTEND Obstetrics & Gynecology
DX: N93.9 Abnormal uterine and vaginal bleeding, unspecified (principal)

== ENCOUNTER 2023-11-28 10:07 | Day surgery (SDC) | payer OTHER ==
[~2023-11-28] VITALS: Ht 160 cm; Wt 88.9 kg
[~2023-11-28 10:07] MED LIST changes: +ACETAMINOPHEN 1000MG 100ML IV BAG As Ordered ONE; +HYDROmorphone HCL 2MG/ML 1ML VIAL As Ordered ONE; +KETOROLAC 60MG 2ML VIAL As Ordered ONE; +LIDOCAINE 2% 100MG/5ML SDV (FOR ANES.) As Ordered ONE; +METOCLOPRAMIDE INJ 10MG/2ML VIAL As Ordered ONE; +MIDAZOLAM INJ 2MG/2ML VIAL As Ordered ONE; +ONDANSETRON 4MG 2ML VIAL As Ordered ONE; +ROCURONIUM BROMIDE 50MG/5ML VIAL As Ordered ONE; +SERT50TA29 PO; +SUGAMMADEX SODIUM 500 MG/5 ML VIAL (BRIDION) As Ordered ONE; +THERTAB52 PO; +fentaNYL 100 MCG/2 ML INJECTION As Ordered ONE; +propofoL 200 MG/20 ML VIAL As Ordered ONE
[2023-11-28] MEDS: LR 1,000 ML IV SCH ×3 (10:55→15:50)
[2023-11-28 11:11] LABS: HEMATOCRIT 40.7 % (36.0-47.0); HEMOGLOBIN 13.2 g/dl (12.0-15.5); MEAN CORPUSCULAR HEMOGLOBIN 30.2 pg (27.0-33.0); MEAN CORPUSCULAR HGB CONC 32.4 g/dl (32.0-36.5); MEAN CORPUSCULAR VOLUME 93.1 fl (80.0-96.0); PLATELET COUNT, AUTOMATED 277 10^3/uL (150-450); RED BLOOD COUNT 4.37 10^6/uL (4.00-5.40); WHITE BLOOD COUNT 6.2 10^3/uL (4.0-10.0)
[2023-11-28] MEDS: SCOPOLAMINE 1MG TRANSDERMAL PATCH TOP ONE (11:11)
[2023-11-28] MEDS ORDERED: ePHEDrine SULFATE 25 MG/5 ML(5MG/ML) SYRINGE As Ordered ONE (13:35)
[2023-11-28] MEDS: ceFAZolin SOD 2 GM in IV 1 EA IV ONE (13:36)
[2023-11-28] MEDS ORDERED: LABETALOL 100MG/20ML VIAL As Ordered ONE (14:08)
[2023-11-28] MEDS: METHYLENE BLUE 0.5% (5MG/ML) 10 ML AMP (PROVAYBLUE) As Ordered ONE (14:14)
[2023-11-28] MEDS ORDERED: PERCOCET 5MG/325MG TAB PO PRN ×2 (14:55)
[2023-11-28] MEDS ORDERED: ONDANSETRON 4MG 2ML VIAL IV PRN (14:55)
[2023-11-28] MEDS ORDERED: MORPHINE 4 MG/ML 1ML VIAL IV PRN (14:55)
[2023-11-28] MEDS ORDERED: oxyCODONE 5MG TAB PO PRN (15:00)
[2023-11-28] MEDS ORDERED: fentaNYL 100 MCG/2 ML INJECTION IV PRN (15:00)
[2023-11-28] MEDS ORDERED: HYDROMORPHONE HCL 0.5 MG/ 0.5 ML SYRINGE IV PRN (15:00)
[2023-11-28] MEDS: ONDANSETRON 4MG 2ML VIAL IV PRN (15:10)
[2023-11-28 15:45] VITALS: BP 143/92; TEMP 96.8; O2SAT 95
[2023-11-28 16:15] VITALS: BP 135/87; TEMP 97.2; O2SAT 98
[2023-11-28] MEDS: KETOROLAC 30 MG/ML 1ML VIAL IV SCH (16:33)
[2023-11-28 16:45] VITALS: BP 139/83; TEMP 96.6; O2SAT 97
[2023-11-28 17:45] VITALS: BP 152/84; TEMP 96.6; O2SAT 98
[2023-11-28 18:39] VITALS: BP 145/83; TEMP 97.3; O2SAT 97
[2023-11-28 19:50] VITALS: BP 139/78; TEMP 97.5; O2SAT 96
[2023-11-28] MEDS ORDERED: IBUP80TA PO (20:18)
[2023-11-28] MEDS ORDERED: PERCOCET PO (20:18)
[2023-11-28] MEDS ORDERED: DOCUSATE SODIUM 100MG CAPSULE PO SCH (21:00)
[2023-11-29] MEDS ORDERED: IBUPROFEN 800 MG TAB PO SCH (18:00)
== END 2023-11-28 21:33 | disposition home or self-care (01) ==
LOC: M SDC 10:07 → UNDOADMOB 10:08 → M RR INP 10:08 → M MSPAV 16:05 → INTOOBSV 20:19 → OBSVTOIN 20:19 → M SDC 21:33 → UNDODISIN 21:33
PROVIDERS: ATTEND Obstetrics & Gynecology
DX: N93.9 Abnormal uterine and vaginal bleeding, unspecified (principal); D25.9 Leiomyoma of uterus, unspecified
CPT/HCPCS: 36415; 58571; 81025; 85027; 86850; 86900; 86901; 88307; 96374; J0131; J0665; J0690; J1100; J1170; J1885; J1920; J2250; J2405; J2765; J3010; Q9968; S2900

== ENCOUNTER → 2024-01-22 | Outpatient (CLI) | payer OTHER ==
[~2024-01-22] MED LIST changes: -ACETAMINOPHEN 1000MG 100ML IV BAG As Ordered ONE; -HYDROmorphone HCL 2MG/ML 1ML VIAL As Ordered ONE; -KETOROLAC 60MG 2ML VIAL As Ordered ONE; -LIDOCAINE 2% 100MG/5ML SDV (FOR ANES.) As Ordered ONE; -METOCLOPRAMIDE INJ 10MG/2ML VIAL As Ordered ONE; -MIDAZOLAM INJ 2MG/2ML VIAL As Ordered ONE; -ONDANSETRON 4MG 2ML VIAL As Ordered ONE; +PERCOCET PO; -ROCURONIUM BROMIDE 50MG/5ML VIAL As Ordered ONE; -SUGAMMADEX SODIUM 500 MG/5 ML VIAL (BRIDION) As Ordered ONE; -fentaNYL 100 MCG/2 ML INJECTION As Ordered ONE; -propofoL 200 MG/20 ML VIAL As Ordered ONE
[2024-01-22 13:36] LABS: TOTAL 25(OH) VITAMIN D 42.5 NG/ML (20.0-100.0)
[2024-01-22 13:38] LABS: ALBUMIN 3.9 G/DL (3.2-5.2); ALKALINE PHOSPHATASE 88 U/L (46-116); ALT/SGPT 31 U/L (7.0-40); AST/SGOT 15 U/L (<34); BILIRUBIN,TOTAL 0.7 MG/DL (0.3-1.2); BLOOD UREA NITROGEN 17 MG/DL (9-23); CARBON DIOXIDE LEVEL 27 MMOL/L (20-31); CHLORIDE LEVEL 108 MMOL/L (98-107); CHOLESTEROL LEVEL 253 MG/DL (<200); CHOLESTEROL RISK RATIO 5.33 (<5); CREATININE FOR GFR 0.75 MG/DL (0.55-1.30); GLOMERULAR FILTRATION RATE > 60.0 (>58); GLUCOSE, FASTING 89 MG/DL (60-100); HDL CHOLESTEROL 47.4 MG/DL (>40); LDL CHOLESTEROL 177.8 MG/DL (<100); NON-HDL-C 205.6 MG/DL; POTASSIUM SERUM 4.8 MMOL/L (3.5-5.1); SODIUM LEVEL 141 MMOL/L (136-145); TRIGLYCERIDES LEVEL 139 MG/DL (<150)
== END ==
LOC: M PLALAB 10:17
PROVIDERS: ATTEND Nurse Practitioner Family
DX: E78.2 Mixed hyperlipidemia (principal); E55.9 Vitamin D deficiency, unspecified

== ENCOUNTER → 2025-05-20 | Outpatient (REF) | payer OTHER ==
[2025-05-22 16:20] LABS: HPV APTIMA Not Detected (Not Detected)
== END ==
LOC: M SFHCWAGY 14:53
PROVIDERS: ATTEND Obstetrics & Gynecology
DX: Z12.72 Encounter for screening for malignant neoplasm of vagina (principal); R87.5 Abnormal microbiological findings in specimens from female genital organs

== ENCOUNTER → 2025-06-09 | Outpatient (CLI) | payer OTHER | LOC: M WHC 14:14 | PROVIDERS: ATTEND Obstetrics & Gynecology | DX: R10.20 Pelvic and perineal pain unspecified side (principal) ==